=== PATIENT | male | born 1985 | race Caucasian/White ===

== ENCOUNTER 2018-02-21 16:13 | Emergency (ER) | payer BC ==
[~2018-02-21] VITALS: Ht 203.2 cm; Wt 111.6 kg
--- OUTSIDE RECORDS SUMMARY | 2018-02-21 16:17 | XMS REPORT ---
Author CATHY Mojica [facility] eClinicalWorks Address Unknown Phone Unavailable Care Team Providers Care Fusing Line Inspector Name Role Phone CATHY BROWN CP Unavailable Allergies, Adverse Reactions, Alerts Substance Reaction Event Type N.K.D.A. Info Not Available Non Drug Allergy Problems Problem Type Condition Code Onset Dates Condition Status Assessment Poison eric L23.7 Active Medications Medication Code System Code Instructions Start Date End Date Status Dosage PredniSONE [facility] [address]-86 20 mg Orally Once a day Jan 02, 2016 2 qd 5days, 1 qd 3 days Triamcinolone Acetonide [facility] [address]-34 0.1 % Externally Twice a day December 19, 2015 1 application to affected area Procedures Procedure Coding System Code Date Office Visit, Est Pt., Level 2 CPT-4 90153 Jan 02, 2016 Vital Signs Date/Time: Jan 02, 2016 Cardiac Monitoring Heart Rate 80 bpm Weight 221.5 lbs Height 80 in BMI 24.33 Index Blood Pressure Diastolic 74 mmHg Blood Pressure Systolic 118 mmHg Results No Known Results Summary Purpose eClinicalWorks Submission
--- OUTSIDE RECORDS SUMMARY | 2018-02-21 16:17 | XMS REPORT ---
Author Author LINDA WILLIAM Organization e[employer] Address Unknown Phone Unavailable Care Team Providers Care Reel Man Name Role Phone LINDA WILLIAM CP Unavailable Allergies, Adverse Reactions, Alerts Substance Reaction Event Type N.K.D.A. Info Not Available Non Drug Allergy Problems Problem Type Condition Code Onset Dates Condition Status Assessment Plant dermatitis L25.5 Active Medications Medication Code System Code Instructions Start Date End Date Status Dosage Triamcinolone Acetonide [facility] [address]-24 0.1 % Externally Twice a day December 19, 2015 1 application to affected area Procedures Procedure Coding System Code Date THER/PROPH/DIAG INJ, SC/IM CPT-4 09577 December 19, 2015 Office Visit, Est Pt., Level 3 CPT-4 16844 December 19, 2015 KENALOG 40 MG/ML (PER 10 MG) CPT-4 J3301 December 19, 2015 Vital Signs Date/Time: December 19, 2015 Cardiac Monitoring Heart Rate 80 bpm Weight 225.9 lbs Height 80 in Blood Pressure Diastolic 76 mmHg Blood Pressure Systolic 118 mmHg Results No Known Results Summary Purpose eClinicalWorks Submission
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
[2018-02-21] MEDS ORDERED: fentaNYL INJECTION 100 MCG/2 ML AMP IM ONE (16:30)
[2018-02-21] MEDS ORDERED: TETANUS,DIPTH,PERTUSS P/F (BOOSTRIX) 0.5 ML VIAL IM ONE (16:45)
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
[2018-02-21] MEDS ORDERED: oxyCODONE/APAP 5/325MG (PERCOCET 5) TABLET PO ONE (18:00)
[2018-02-21] MEDS ORDERED: HYDR-3812 PO (18:50)
[2018-02-21] MEDS ORDERED: RX-OXYCODONE/APAP 5-325 MG #4 TAB PK PO PRN (19:00)
[2018-02-21 19:05] VITALS: BP 130/92
== END 2018-02-21 19:05 | disposition home or self-care (01) ==
LOC: EDUNIT# 16:13 → ER 16:14
DX: S62.002A Unspecified fracture of navicular [scaphoid] bone of left wrist, initial encounter for closed fracture (principal); S50.312A Abrasion of left elbow, initial encounter; S60.512A Abrasion of left hand, initial encounter; Z23 Encounter for immunization; V18.4XXA Pedal cycle driver injured in noncollision transport accident in traffic accident, initial encounter
CPT/HCPCS: 29105; 73080; 73110; 90715